=== PATIENT | female | born 1995 | race Two or more races ===

== ENCOUNTER 2018-10-20 20:35 | Emergency (ER) | payer SELFPAY ==
[~2018-10-20] VITALS: Ht 162.6 cm; Wt 95.3 kg
[2018-10-20 21:24] VITALS: BP 119/62
[2018-10-20] MEDS ORDERED: DEXAMETHASONE 4 MG TABLET PO ONE (21:45)
[2018-10-20] MEDS ORDERED: NEOM10DR32 EACH EAR (21:46)
--- NOTE | 2018-10-20 21:46 | PHYS DOC ---
Past Medical History Past Medical History: No Pertinent History Past Surgical History: Appendectomy, Other Additional Past Surgical Histo: both feet, left toe Alcohol Use: None Drug Use: None Adult General Chief Complaint Chief Complaint: EARACHE/EAR PAIN HPI HPI Patient is a 23 year old who presents with ear pain. Patient states that this here pain has been going on for 1 week. She describes it as a shooting and throbbing pain with no radiation. She is attempted to take Tylenol or ibuprofen with no relief. Chewing does not make very or pain any worse. In addition to her ear pain she's also had a cough and a sore throat 2 weeks ago. Over the cough in the sore throat has since resolved. She denies any fevers, chills, hearing loss, or tooth pain.[] Review of Systems Review of Systems Constitutional: Denies fever or chills [] Eyes: Denies redness or eye pain [] HENT: Reports ear pain, denies nasal congestion or sore throat [] Respiratory: Denies cough or shortness of breath [] Cardiovascular: Denies chest pain or palpitations[] GI: Denies abdominal pain, nausea, vomiting. [] : Denies dysuria or hematuria [] Musculoskeletal: Denies back pain or joint pain [] Integument: Denies rash or skin lesions [] Neurologic: Reports headache, denies focal weakness or sensory changes [] Complete systems were reviewed and found to be within normal limits, except as documented in this note. Current Medications Current Medications Current Medications Medications (Trade) Dose Ordered Sig/[facility] Start Time Stop Time Status Last Admin Dose Admin Dexamethasone (Decadron) 10 mg 1X ONCE 10/20/18 21:45 10/20/18 21:46 DC 10/20/18 21:48 10 MG Allergies Allergies Allergies Coded Allergies Type Severity Reaction Last Updated Verified No Known Drug Allergies 10/20/18 No Physical Exam Physical Exam Constitutional: Well developed, well nourished.] HENT: Normocephalic, atraumatic, tenderness to right external ear, bilateral TMs clear bilaterally, oropharynx moist, swollen left nasal turbinate no oral exudates. [] Eyes: EOMI, conjunctiva normal, no discharge. [] Neck: Normal range of motion, no tenderness. [] Cardiovascular:Heart rate regular rhythm, no murmur [] Lungs & Thorax: Bilateral breath sounds clear to auscultation, no rhonchi rales or wheezes [] Abdomen: Bowel sounds normal, soft, no tenderness, no rebound, rigidity or guarding. [] Skin: Warm, dry, no erythema, no rash. [] Back: No tenderness, no CVA tenderness. [] Extremities: ROM intact, no edema. [] Neurologic: Alert and oriented X 3, no focal deficits noted. [] Psychologic: Affect normal,mood normal. [] Current Patient Data Vital Signs Vital Signs Date Time Temp Pulse Resp B/P (MAP) Pulse Ox O2 Delivery O2 Flow Rate FiO2 10/20/18 21:24 98.8 104 16 119/62 (81) 94 Room Air 98.8 EKG EKG [] Radiology/Procedures Radiology/Procedures [] Course & Med Decision Making Course & Med Decision Making 23-year-old female presented for right ear pain. Patient denies any loss of hearing or mastoid tenderness. No lesions were noticed on gumline or teeth. Symptomatic treatment provided with interval improvement. Prescription for eardrops provided. Patient stable for discharge with outpatient follow-up with PCP. Discussed findings and plan with patient and family, who acknowledge understanding and agreement.(See chart for details) [] Dragon Disclaimer Dragon Disclaimer This electronic medical record was generated, in whole or in part, using a voice recognition dictation system. Departure Departure Impression: Primary Impression: Otitis externa Disposition: 01 HOME, SELF-CARE Condition: STABLE Referrals: NON,STAFF (PCP) Patient Instructions: Otitis Externa, [id number] Scripts Neomycin/Polymyxin B Sulf/Hc ([id number] EAR SUSP) 10 Ml Drops.susp 3 DROP EACH EAR QID for 5 Days, #10 ML Prov: STACEY BRAND DO 10/20/18 Problem Qualifiers Primary Impression: Otitis externa Otitis externa type: unspecified type Chronicity: acute Laterality: right Qualified Codes: H60.501 - Unspecified acute noninfective otitis externa, right ear STACEY BRAND DO Oct 20, 2018 21:46
== END 2018-10-20 22:02 | disposition home or self-care (01) ==
LOC: ER 20:35
DX: H60.501 Unspecified acute noninfective otitis externa, right ear (principal); R51 Headache; Z90.89 Acquired absence of other organs
CPT/HCPCS: 99283; J8540